=== PATIENT | female | born 1995 | race Caucasian/White ===

== ENCOUNTER 2024-12-21 09:41 | Day surgery (SDC) | payer MEDICAID ==
[2024-12-21] MEDS: Sodium Chloride 0.9% 250 ML IV SCH (09:53)
[2024-12-21] MEDS ORDERED: Lidocaine 2% 20 ML MDV ONE (10:10)
[2024-12-21] MEDS ORDERED: Ketamine 200 MG/20 ML MDV ONE (10:10)
[2024-12-21] MEDS ORDERED: ePHEDrine 50 MG/ML SDV ONE (10:10)
[2024-12-21] MEDS ORDERED: fentaNYL 50 MCG/ML SDV ONE (10:10)
[2024-12-21] MEDS ORDERED: Midazolam 1 MG/ML 2 ML SDV ONE (10:10)
[2024-12-21] MEDS ORDERED: Propofol 200 MG/20 ML SDV ONE (10:10)
== END 2024-12-21 11:18 | disposition home or self-care (01) ==
LOC: CC.SDS 09:41
PROVIDERS: ATTEND Family Medicine
DX: K29.80 Duodenitis without bleeding (principal); F41.8 Other specified anxiety disorders; G47.33 Obstructive sleep apnea (adult) (pediatric); Z87.891 Personal history of nicotine dependence
CPT/HCPCS: 00731; 36415; 84703; 87081; J2250; J2704; J3010; J3490